=== PATIENT | male | born 1945 | race Caucasian/White ===

== ENCOUNTER 2024-08-17 13:40 | Emergency (ER) | payer OTHER, SELFPAY ==
[2024-08-17 13:43] VITALS: BP 161/105
[2024-08-17 14:45] VITALS: BP 163/92
[2024-08-17 14:49] VITALS: BMI 27.7
--- NOTE | 2024-08-17 15:00 | ED.GENMED ---
History of Present Illness
General
Chief Complaint: Breathing Problem
Source: patient
Exam Limitations: none
Time Seen by Provider: 08/17/24 14:19
History of Present Illness
History of Present Illness:
79-year-old male started with some nasal congestion runny nose 2 days ago. Then developed sore throat. Seen in urgent care and diagnosed with COVID. Was sent here because there ex right machine apparently is broken. Denies cough shortness of
breath pleuritic pain or chest pain. Actually states the sore throat is improved.
Past History
Past History
ED Past Medical History: None
ED Past Surgical History: Other (Hernia repair)
Social History
Tobacco: Non-smoker
Personal: Single
Employment: Employed
Review of Systems
Review of Systems
All Other Systems: Not applicable
Respiratory: Denies cough or trouble breathing
Cardiac: Denies chest pain
Phy Exam
Physical Exam
Physical Exam:
GENERAL: Alert and oriented in no apparent distress
EYE: Orbits normal.
NECK: Supple, no swelling
ENT: Pharynx with mild diffuse erythema. No exudate. No drooling or stridor
CARDIAC: Regular rate and rhythm without any obvious murmurs.
LUNGS: Clear breath sounds,normal
ABDOMEN: Soft, without focal tenderness or distention
NEUROLOGICAL: Alert and oriented , grossly non-focal
SKIN: Warm and dry, no rash or lesion, no discoloration, skin intact.
MUSCULOSKELETAL: No edema,no deformity.Good color
PSYCH: Normal and appropriate interaction.
Scores
Heart Failure Risk
Heart Failure Risk Score: Not Applicable
Course
Orders/Labs/Results
Orders:
Orders
08/17/24 13:43
EKG [Electrocardiogram (*1)] Urgent
Reason for Study: Shortness of Breath
EKG- Treatment ONCE
08/17/24 14:05
CXR2 [CR Chest - 2 Views ] Urgent
Comment:
Reason For Exam: SOB
08/17/24 15:03
Basic Metabolic Panel Urgent
Complete Blood Count/With Diff Urgent
Troponin I Urgent
08/17/24 17:17
Troponin I Urgent
Abnormal Lab Results
08/17/24 08/17/24
15:03 17:17
MCV 79.5 L fL
(80.0-94.0)
Absolute Monos (auto) 0.8 H 10^3/uL
(0.1-0.6)
Monocytes % 13.0 H %
(1.7-9.3)
Chloride 97 L mmol/L
(98-107)
Glucose 233 H mg/dl
(70-99)
Troponin I 0.041 H* ng/ml 0.043 H* ng/ml
08/17/24 15:03
08/17/24 15:03
Vital Signs
Initial and Last Documented VS:
Initial Vital Signs
Temp Pulse Resp BP Pulse Ox
99.4 F 115 18 161/105 96
08/17/24 13:43 08/17/24 13:43 08/17/24 13:43 08/17/24 13:43 08/17/24 13:43
Last Documented Vital Signs
Temp Pulse Resp BP Pulse Ox
98.9 F 70 18 153/92 97
08/17/24 14:45 08/17/24 16:00 08/17/24 16:00 08/17/24 16:00 08/17/24 16:00
*Pulse Oximetry
Patient hypoxic: no
*Critical Care Note
Total Time (30-74mins, 75-104mins- exclusive of procedures): Not Applicable
Update Note
Update Note:
Chest x-ray is negative. Patient has remained stable. EKG and troponin stable. Not describing acute cardiac symptoms. Discharged to follow-up. Have offered Paxlovid although very plus minus on actually taking it
ED Attending Note
-
Portions of this chart may have been created with voice recognition software.� Occasional wrong word or��sound alike� substitutions may have occurred due to the inherent limitations of voice recognition software.
Discharge Plan
Departure
Patient Disposition: Home (Routine Discharge)
Date of Disposition: 08/17/24
Time of Disposition: 18:33
Patient with high blood pressure during this ER visit?: Yes
Discharge Problem:
COVID-19, Left bundle branch block, Hyperglycemia
Instructions: COVID-19 ED, BLOOD PRESSURE
Prescriptions:
New
Paxlovid 300 mg (150 mg x 2)-100 mg tablets,dose pack
See Rx Instructions .ROUTE .COMPLEX Qty: 30 0RF
Rx Instructions:
take TWO 150 mg tablets of nirmatrelvir with ONE 100 mg tablet of ritonavir twice daily for 5 days
No Action
acetaminophen [Tylenol Arthritis Pain] 650 mg Tablet Extended Release
650 mg PO Q8HPRN PRN (Reason: fever/mild pain)
Parisa-Lyman Plus C/C(PE,DM) 2-7.8-10-325 mg Tablet, Effervescent
2 ea PO DAILYPRN PRN (Reason: cough/sore throat)
Referrals:
Jaime Manuel MD [Family Provider] - Follow up in 2-3 days
Constantino Walker MD [Active] - Next open appointment
Activity Restrictions/Additional Instructions:
If you elect to take the Paxlovid, you must start within 5 days of symptom onset
Recommend following up with cardiology. The name is listed above
Interventions
Interventions:
*Risk Screen - Suicide Last Done: 08/17/24 13:43
*General Assessment Last Done: 08/17/24 13:43
*Neglect/Abuse Screening Last Done: 08/17/24 13:43
ED- Fall Risk Assessment Last Done: 08/17/24 14:51
*ED COVID-19 Vaccine History Last Done: 08/17/24 14:50
ED- Cardiac Assessment Last Done: 08/17/24 14:50
ED- Pulmonary Assessment Last Done: 08/17/24 14:51
Discharge Date and Time
Print Language: INDONESIAN
[2024-08-17 15:15] LABS: % Basophils 0.8 % (0-2); % Eosinophils 2.8 % (0-6); % Immature Granulocytes 0.3 % (0-0.5); % Lymphocytes 31.7 % (20.5-51.1); % Neutrophils 51.4 % (42.2-75.2); Absolute Basophils 0.1 10^3/uL (0-0.2); Absolute Eosinophils 0.2 10^3/uL (0-0.7); Absolute Monocytes 0.8 10^3/uL (0.1-0.6); Absolute Neutrophils 3.3 10^3/uL (1.4-6.5); Hematocrit 41.8 % (39.0-52.0); Hemoglobin 14.7 g/dL (13.0-18.0); Mean Corp Hgb Conc. 35.2 g/dL (33.0-37.0); Mean Corpuscular Hgb 27.9 pg (27.0-31.0); Mean Corpuscular Volume 79.5 fL (80.0-94.0); Mean Platelet Volume 8.3 fL (7.4-10.4); Nucleated Red Blood Cells % 0 % (-); Platelet Count 217 10^3/uL (130-400); Red Blood Cell Count 5.26 10^6/uL (4.70-6.10); Red Cell Dist. Width 12.9 % (11.5-14.5); White Blood Cell Count 6.4 10^3/uL (4.8-10.8)
[2024-08-17 15:32] LABS: Blood Urea Nitrogen 16 mg/dl (9-20); Calcium 8.9 mg/dl (8.4-10.2); Carbon Dioxide 30 mmol/L (22-30); Chloride 97 mmol/L (98-107); Estimated Creatinine Clearance 72 ml/min; Glucose 233 mg/dl (70-99); Potassium 3.9 mmol/L (3.5-5.1); Sodium 138 mmol/L (135-145); eGFR > 60.00
[2024-08-17 15:47] LABS: Troponin I 0.041 ng/ml
[2024-08-17 16:00] VITALS: BP 153/92
[2024-08-17 17:50] LABS: Troponin I 0.043 ng/ml
[2024-08-17 18:00] VITALS: BP 144/88
== END 2024-08-17 19:00 | disposition home or self-care (01) ==
LOC: EMR 13:40
PROVIDERS: EMERGENCY PHYSICIAN Emergency Medicine; FAMILY PHYSICIAN Family Medicine
DX: U07.1 COVID-19 (principal); I44.7 Left bundle-branch block, unspecified; R73.9 Hyperglycemia, unspecified
CPT/HCPCS: 99285; 71046; 80048; 84484; 85025; 93005